=== PATIENT | male | born 1980 | race Caucasian/White ===

== ENCOUNTER 2019-07-23 12:26 | Emergency (ER) | payer OTHER ==
[~2019-07-23] VITALS: Ht 180.3 cm; Wt 98.9 kg
--- NOTE | 2019-07-23 13:00 | NUR ---
Patient discharged to home in stable condition with brisk steady gait. Written and verbal after care instructions given to patient. Patient verbalized understanding & compliance of instructions. Emphasis and stressed follow up with his primary doctor or return to ER for worsening s/s.
== END 2019-07-23 13:02 | disposition home or self-care (01) ==
LOC: ER 12:26
DX: K21.9 Gastro-esophageal reflux disease without esophagitis (principal); M54.5 Low back pain
CPT/HCPCS: A4663

== ENCOUNTER 2019-08-25 14:55 | Emergency (ER) | payer OTHER ==
[~2019-08-25] VITALS: Ht 180.3 cm; Wt 97.1 kg
--- NOTE | 2019-08-25 15:14 | NUR ---
Patient discharged to home in stable condition. Written and verbal after care instructions given. Patient verbalizes understanding of instructions. pt walks in steady gait. Stressed follow up or return to ER for worsening s/s.
== END 2019-08-25 15:16 | disposition home or self-care (01) ==
LOC: ER 15:02
DX: M54.5 Low back pain (principal)
CPT/HCPCS: A4663

== ENCOUNTER 2019-09-20 18:34 | Emergency (ER) | payer OTHER ==
[~2019-09-20] VITALS: Ht 180.3 cm; Wt 95.3 kg
--- NOTE | 2019-09-20 18:41 | NUR ---
DR CHACON AT BEDSIDE FOR EVAL.
[2019-09-20] MEDS ORDERED: KETOROLAC TROMETHAMINE 30 MG INJ ONE (18:54)
[2019-09-20] MEDS ORDERED: DIAZEPAM 5 MG TABLET ONE (18:54)
[2019-09-20] MEDS ORDERED: HYDROCODONE/APAP 5-325MG TABLET ONE (18:54)
--- NOTE | 2019-09-20 18:57 | NUR ---
HAND OFF REPORT GIVEN TO DANA ARGUELLO. XRAY IN PROCESS...
[2019-09-20] MEDS ORDERED: HYDROCODONE/APAP 5-325MG TABLET PO ONE (19:00)
[2019-09-20] MEDS ORDERED: KETOROLAC TROMETHAMINE 30 MG INJ IM ONE (19:00)
[2019-09-20] MEDS ORDERED: DIAZEPAM 2 MG TABLET PO ONE (19:00)
--- NOTE | 2019-09-20 19:31 | NUR ---
Patient discharged to home in stable condition. Written and verbal after care instructions given. Patient verbalizes understanding of instructions. Stressed follow up or return to ER for worsening s/s. Patient was able to ambulate with stable gait. Patient instructed that he may drive, states that he will get picked up.
[2019-09-20 19:32] VITALS: BP 138/89
== END 2019-09-20 19:33 | disposition home or self-care (01) ==
LOC: ER 18:34
DX: S39.012A Strain of muscle, fascia and tendon of lower back, initial encounter (principal); W01.0XXA Fall on same level from slipping, tripping and stumbling without subsequent striking against object, initial encounter; Y93.83 Activity, rough housing and horseplay; Y92.34 Swimming pool (public) as the place of occurrence of the external cause; Y99.8 Other external cause status
CPT/HCPCS: 72110; 96372; 99283; J1885; A4663

== ENCOUNTER 2019-09-28 09:59 | Emergency (ER) | payer OTHER ==
[~2019-09-28] VITALS: Ht 180.3 cm; Wt 98.0 kg
--- NOTE | 2019-09-28 10:00 | NUR ---
Patient is seen walking to room 2 from ER waiting room with brisk steady gait, c/o chronic back pains, NAD, pending MD evaluation
--- NOTE | 2019-09-28 10:32 | NUR ---
Patient discharged to home in stable condition & brisk steady gait. Written and verbal after care instructions given to patient. Patient verbalized understanding & compliance of instructions. Stressed follow up with pain doctor for his chronic pains or return to ER for worsening s/s.
== END 2019-09-28 10:34 | disposition home or self-care (01) ==
LOC: ER 09:59
DX: G89.29 Other chronic pain (principal); M54.5 Low back pain
CPT/HCPCS: A4663

== ENCOUNTER 2019-11-01 21:30 | Emergency (ER) | payer OTHER ==
[~2019-11-01] VITALS: Ht 180.3 cm; Wt 98.0 kg
[2019-11-01] MEDS ORDERED: IBUP-1958 PO (21:45)
[2019-11-01] MEDS ORDERED: CYCLOBENZAPRINE 10 MG (21:45)
[2019-11-01] MEDS ORDERED: PRED20TA PO (21:45)
--- NOTE | 2019-11-01 21:48 | NUR ---
pt presented to er ambulatory for c/o lower back pain since this AM. pain 8-12/05. aa/0x4. able to speak in complete sentences respirations even and unlabored denies changes in GI/ safety precautions in place. bed locked, lowest position. instructed pt to call nurse for assistance will continue to monitor
--- NOTE | 2019-11-01 22:01 | NUR ---
Dr. Savage at bedside for MSE
[2019-11-01] MEDS ORDERED: MORPHINE SULFATE 4 MG/1 ML DISP.SYRIN IM ONE (23:30)
[2019-11-01] MEDS ORDERED: MORPHINE SULFATE 4 MG/1 ML DISP.SYRIN ONE (23:30)
--- NOTE | 2019-11-01 23:59 | NUR ---
BACK PAIN 06/04. PT D/C'D HOME, ACI/RX X1 GIVEN. PT AMBULATED W/O DIFF/TOOK ALL BELONGINGS.
[2019-11-02] VITALS: BP 139/98
== END 2019-11-01 23:58 | disposition home or self-care (01) ==
LOC: ER 21:31
DX: M54.5 Low back pain (principal); G89.29 Other chronic pain; R03.0 Elevated blood-pressure reading, without diagnosis of hypertension
CPT/HCPCS: 96372; 99283; J2270; A4663

== ENCOUNTER 2019-12-16 10:28 | Emergency (ER) | payer OTHER ==
[~2019-12-16] VITALS: Ht 180.3 cm; Wt 98.0 kg
[~2019-12-16 10:28] MED LIST: CYCLOBENZAPRINE 10 MG; IBUP-1958 PO; PRED20TA PO
[2019-12-16] MEDS ORDERED: HYDROMORPHONE 2 MG/1 ML DISP.SYRIN ONE (10:41)
[2019-12-16] MEDS ORDERED: ONDANSETRON 4 MG/2 ML VIAL ONE (10:41)
--- NOTE | 2019-12-16 10:43 | NUR ---
Patient discharged to home in stable condition. Written and verbal after care instructions given. Patient verbalizes understanding of instructions. Stressed follow up or return to ER for worsening s/s.
[2019-12-16] MEDS ORDERED: ONDANSETRON 4 MG/2 ML VIAL IM ONE (10:45)
[2019-12-16] MEDS ORDERED: HYDROMORPHONE 1 MG/1 ML DISP.SYRIN IM ONE (10:45)
== END 2019-12-16 10:47 | disposition home or self-care (01) ==
LOC: ER 10:28
DX: M54.42 Lumbago with sciatica, left side (principal); Z88.2 Allergy status to sulfonamides
CPT/HCPCS: 96372; 99283; J1170; J2405; A4663

== ENCOUNTER 2020-01-04 12:26 | Emergency (ER) | payer OTHER ==
[~2020-01-04] VITALS: Ht 177.8 cm; Wt 97.5 kg
--- NOTE | 2020-01-04 12:38 | NUR ---
MD@bedside, medical screening exam in progress
[2020-01-04] MEDS ORDERED: HYDROCODONE/APAP 5-325MG TABLET PO ONE (12:45)
[2020-01-04] MEDS ORDERED: DEXAMETHASONE SOD PHOSPHATE 4 MG INJ IM ONE (12:45)
[2020-01-04] MEDS ORDERED: IBUPROFEN 800 MG TABLET PO ONE (12:45)
[2020-01-04] MEDS ORDERED: IBUPROFEN 800 MG TABLET ONE (12:55)
[2020-01-04] MEDS ORDERED: HYDROCODONE/APAP 5-325MG TABLET ONE (12:55)
[2020-01-04] MEDS ORDERED: DEXAMETHASONE SOD PHOSPHATE 10 MG INJ ONE (12:56)
--- NOTE | 2020-01-04 13:01 | NUR ---
Patient discharged to home in stable condition & brisk steady gait. Written and verbal after care instructions given to patient. Patient verbalized understanding and compliance of instructions. Patient said that his is driving his care. Stressed follow up with his primary doctor and/or his pain specialist. Patient was also told to return to ER for worsening signs and symptoms. Addendum: 01/04/20 at 1309 by KATHLEEN ...his is driving his car.
== END 2020-01-04 13:09 | disposition home or self-care (01) ==
LOC: ER 12:26
DX: G89.29 Other chronic pain (principal); M54.5 Low back pain; F11.20 Opioid dependence, uncomplicated
CPT/HCPCS: 96372; 99283; J1100; A4663

== ENCOUNTER 2020-01-13 09:44 | Emergency (ER) | payer OTHER ==
[~2020-01-13] VITALS: Ht 177.8 cm; Wt 97.5 kg
--- NOTE | 2020-01-13 09:45 | NUR ---
Dr. Shaa at bedside for MSE
[2020-01-13] MEDS ORDERED: KETOROLAC TROMETHAMINE 60 MG INJ IM ONE ×2 (10:00→10:03)
--- NOTE | 2020-01-13 10:03 | NUR ---
Patient discharged to home in stable condition. Written and verbal after care instructions given. Patient verbalizes understanding of instructions. Stressed follow up or return to ER for worsening s/s. Patient ambulated with steady gait. NAD noted
[2020-01-13 10:06] VITALS: BP 163/84
== END 2020-01-13 10:03 | disposition home or self-care (01) ==
LOC: ER 09:44
DX: G89.29 Other chronic pain (principal); M51.17 Intervertebral disc disorders with radiculopathy, lumbosacral region
CPT/HCPCS: 96372; 99283; J1885; A4663

== ENCOUNTER 2020-03-11 12:27 | Emergency (ER) | payer OTHER ==
[~2020-03-11] VITALS: Ht 177.8 cm; Wt 97.5 kg
--- NOTE | 2020-03-11 13:18 | NUR ---
PATIENT WAS SEEN BY . DC, RX AND FOLLOW UP INSTRUCTIONS GIVEN AND EXPLAINED TO PATIENT WHO STATES HE UNDERSTANDS ALL INSTRUCTIONS
== END 2020-03-11 13:34 | disposition home or self-care (01) ==
LOC: ER 12:27
DX: B02.9 Zoster without complications (principal); R03.0 Elevated blood-pressure reading, without diagnosis of hypertension; Z88.2 Allergy status to sulfonamides; G89.29 Other chronic pain; M54.9 Dorsalgia, unspecified
CPT/HCPCS: A4663

== ENCOUNTER 2020-04-17 12:19 | Emergency (ER) | payer OTHER ==
[~2020-04-17] VITALS: Ht 177.8 cm; Wt 95.3 kg
--- NOTE | 2020-04-17 12:32 | NUR ---
Dr Adhikari at the bedside for medical screening.
[2020-04-17] MEDS ORDERED: KETOROLAC TROMETHAMINE 30 MG INJ ONE (12:42)
--- NOTE | 2020-04-17 12:43 | NUR ---
Patient discharged to home in stable condition. Written and verbal after care instructions given. Patient verbalizes understanding of instructions. Stressed follow up or return to ER for worsening s/s. Pt walked out of ER w/ steady gait.
[2020-04-17 12:44] VITALS: BP 136/77
[2020-04-17] MEDS ORDERED: KETOROLAC TROMETHAMINE 30 MG INJ IM ONE (12:45)
== END 2020-04-17 12:44 | disposition home or self-care (01) ==
LOC: ER 12:19
DX: G89.29 Other chronic pain (principal); M54.42 Lumbago with sciatica, left side; Z76.0 Encounter for issue of repeat prescription
CPT/HCPCS: 96372; 99283; J1885; A4663

== ENCOUNTER 2020-05-19 16:12 | Emergency (ER) | payer OTHER ==
[~2020-05-19] VITALS: Ht 177.8 cm; Wt 95.3 kg
[2020-05-19] MEDS ORDERED: HYDROMORPHONE 1 MG/1 ML DISP.SYRIN IM ONE (16:30)
[2020-05-19] MEDS ORDERED: ONDANSETRON 4 MG/2 ML VIAL IM ONE (16:30)
[2020-05-19] MEDS ORDERED: ONDANSETRON 4 MG/2 ML VIAL ONE (16:35)
[2020-05-19] MEDS ORDERED: HYDROMORPHONE 2 MG/1 ML DISP.SYRIN ONE (16:35)
--- NOTE | 2020-05-19 16:35 | NUR ---
Patient discharged to home in stable condition. Written and verbal after care instructions given. Patient verbalizes understanding of instructions. Stressed follow up or return to ER for worsening s/s.pt walks in steady gait. pt not driving
== END 2020-05-19 16:36 | disposition home or self-care (01) ==
LOC: ER 16:14
DX: G89.29 Other chronic pain (principal); M54.42 Lumbago with sciatica, left side; Z88.2 Allergy status to sulfonamides
CPT/HCPCS: 96372; 99283; J1170; J2405; A4663

== ENCOUNTER 2020-05-30 14:00 | Emergency (ER) | payer OTHER ==
[~2020-05-30] VITALS: Ht 180.3 cm; Wt 100.7 kg
[2020-05-30] MEDS ORDERED: MORPHINE SULFATE 4 MG/1 ML DISP.SYRIN IM ONE (14:15)
[2020-05-30] MEDS ORDERED: MORPHINE SULFATE 2 MG/1 ML DISP.SYRIN ONE (14:22)
[2020-05-30] MEDS ORDERED: MORPHINE SULFATE 4 MG/1 ML DISP.SYRIN ONE (14:22)
[2020-05-30] MEDS ORDERED: NAPR-1164 PO (15:00)
[2020-05-30] MEDS ORDERED: HYDR-3972 PO (15:15)
--- NOTE | 2020-05-30 15:24 | NUR ---
Patient discharged to home in stable condition. Written and verbal after care instructions given. Patient verbalizes understanding of instructions. Stressed follow up or return to ER for worsening s/s.pt was prescribed with naprosyn, but pt said cannot tolerate it and requested norco. er md changed the px to anexsesia
== END 2020-05-30 15:29 | disposition home or self-care (01) ==
LOC: ER 14:00
DX: M25.562 Pain in left knee (principal); M25.462 Effusion, left knee; G89.29 Other chronic pain; M54.5 Low back pain
CPT/HCPCS: 29505; 73564; 96372; 99283; J2270 ×2; A4663

== ENCOUNTER 2020-06-05 14:35 | Emergency (ER) | payer OTHER ==
[~2020-06-05] VITALS: Ht 180.3 cm; Wt 99.8 kg
[~2020-06-05 14:35] MED LIST changes: +HYDR-3972 PO; +NAPR-1164 PO
--- NOTE | 2020-06-05 15:01 | NUR ---
Dr Candelario at the bedside for MSE.
[2020-06-05] MEDS ORDERED: HYDROCODONE/APAP 5-325MG TABLET PO ONE (15:15)
[2020-06-05] MEDS ORDERED: HYDROCODONE/APAP 5-325MG TABLET ONE (15:18)
[2020-06-05 15:19] VITALS: BP 151/74
== END 2020-06-05 15:20 | disposition home or self-care (01) ==
LOC: ER 14:35
DX: M25.562 Pain in left knee (principal); Z76.5 Malingerer [conscious simulation]; G89.29 Other chronic pain; M54.5 Low back pain
CPT/HCPCS: A4663

== ENCOUNTER 2020-07-08 13:30 | Emergency (ER) | payer OTHER ==
[~2020-07-08] VITALS: Ht 180.3 cm; Wt 101.6 kg
[2020-07-08] MEDS ORDERED: OXYC-133 PO (13:42)
[2020-07-08] MEDS ORDERED: ONDANSETRON 4 MG/2 ML VIAL IM ONE (13:45)
[2020-07-08] MEDS ORDERED: HYDROMORPHONE 1 MG/1 ML DISP.SYRIN IM ONE (13:45)
[2020-07-08] MEDS ORDERED: OXYC-121 PO (13:45)
--- NOTE | 2020-07-08 13:48 | NUR ---
Patient was seen by . Meds given as ordered
[2020-07-08] MEDS ORDERED: HYDROMORPHONE 2 MG/1 ML DISP.SYRIN ONE (13:50)
[2020-07-08] MEDS ORDERED: ONDANSETRON 4 MG/2 ML VIAL ONE (13:51)
== END 2020-07-08 13:49 | disposition home or self-care (01) ==
LOC: ER 13:30
DX: M54.42 Lumbago with sciatica, left side (principal); Z88.2 Allergy status to sulfonamides
CPT/HCPCS: 96372 ×2; 99284; J1170; J2405; A4663

== ENCOUNTER 2020-07-15 14:08 | Emergency (ER) | payer OTHER ==
[~2020-07-15] VITALS: Ht 180.3 cm; Wt 101.6 kg
--- NOTE | 2020-07-15 14:50 | NUR ---
at bedside to assess pt.
[2020-07-15] MEDS ORDERED: OXYC-121 PO ×2 (14:54→14:58)
[2020-07-15] MEDS ORDERED: OXYCODONE/APAP 5-325 MG TABLET PO ONE (15:00)
--- NOTE | 2020-07-15 15:05 | NUR ---
pt given pain medication as ordered.
--- NOTE | 2020-07-15 15:09 | NUR ---
Patient discharged to home in stable condition. Written and verbal after care instructions given. Patient verbalizes understanding of instructions. Stressed follow up or return to ER for worsening s/s. copy of prescription given. educated not to drive after taking narcotics. verbalized understanding
[2020-07-15] MEDS ORDERED: OXYCODONE/APAP 5-325 MG TABLET ONE (15:10)
[2020-07-15 15:14] VITALS: BP 112/66
== END 2020-07-15 15:14 | disposition home or self-care (01) ==
LOC: ER 14:08
DX: M54.42 Lumbago with sciatica, left side (principal); G89.29 Other chronic pain; Z88.2 Allergy status to sulfonamides
CPT/HCPCS: A4663

== ENCOUNTER 2020-07-25 13:00 | Emergency (ER) | payer OTHER ==
[~2020-07-25] VITALS: Ht 180.3 cm; Wt 99.8 kg
[~2020-07-25 13:00] MED LIST changes: +OXYC-121 PO
--- NOTE | 2020-07-25 13:12 | NUR ---
at bedside for assessment
[2020-07-25] MEDS ORDERED: HYDROMORPHONE 1 MG/1 ML DISP.SYRIN IM ONE (14:00)
[2020-07-25] MEDS ORDERED: HYDROMORPHONE 1 MG/1 ML DISP.SYRIN ONE (14:12)
--- NOTE | 2020-07-25 14:20 | NUR ---
Pt stated he will call and [employer] for a ride home.
== END 2020-07-25 14:21 | disposition home or self-care (01) ==
LOC: ER 13:00
DX: G89.29 Other chronic pain (principal); M54.5 Low back pain; R03.0 Elevated blood-pressure reading, without diagnosis of hypertension; Z88.2 Allergy status to sulfonamides
CPT/HCPCS: 96372; 99283; J1170; A4663

== ENCOUNTER 2020-08-01 13:47 | Emergency (ER) | payer OTHER ==
[~2020-08-01] VITALS: Ht 180.3 cm; Wt 93.4 kg
--- NOTE | 2020-08-01 14:21 | NUR ---
at bedside for assessment
[2020-08-01] MEDS ORDERED: HYDROMORPHONE 1 MG/1 ML DISP.SYRIN IM ONE ×2 (14:30→15:45)
[2020-08-01] MEDS ORDERED: diphenhydrAMINE 50 MG/1 ML VIAL IM ONE ×2 (14:30→15:45)
[2020-08-01] MEDS ORDERED: diphenhydrAMINE 50 MG/1 ML VIAL ONE ×2 (14:42→15:45)
[2020-08-01] MEDS ORDERED: HYDROMORPHONE 2 MG/1 ML DISP.SYRIN ONE ×2 (14:42→15:45)
[2020-08-01] MEDS ORDERED: IBUP800T54 PO (15:14)
[2020-08-01] MEDS ORDERED: OXYC-133 PO (15:14)
[2020-08-01] MEDS ORDERED: CYCL10TA9 PO (15:14)
[2020-08-01] MEDS ORDERED: NALO4SPR NS (15:14)
[2020-08-01 15:54] VITALS: BP 127/95
--- NOTE | 2020-08-01 15:54 | NUR ---
Patient discharged to home in stable condition. Written and verbal after care instructions given. Patient verbalizes understanding of instructions. Stressed follow up or return to ER for worsening s/s. Pt left ER w/ steady gait.
== END 2020-08-01 15:54 | disposition home or self-care (01) ==
LOC: ER 13:47
DX: G89.29 Other chronic pain (principal); M54.5 Low back pain; Z88.2 Allergy status to sulfonamides
CPT/HCPCS: 96372 ×2; 99284; J1170 ×2; J1200 ×2; A4663

== ENCOUNTER 2020-08-12 15:38 | Emergency (ER) | payer OTHER ==
[~2020-08-12] VITALS: Ht 180.3 cm; Wt 93.4 kg
[~2020-08-12 15:38] MED LIST changes: +CYCL10TA9 PO; +IBUP800T54 PO; +NALO4SPR NS; +OXYC-133 PO
[2020-08-12] MEDS ORDERED: ONDANSETRON 4 MG/2 ML VIAL IM ONE (16:00)
[2020-08-12] MEDS ORDERED: HYDROMORPHONE 1 MG/1 ML DISP.SYRIN IM ONE (16:00)
--- NOTE | 2020-08-12 16:08 | NUR ---
Patient discharged to home in stable condition. Written and verbal after care instructions given. Patient verbalizes understanding of instructions. Stressed follow up or return to ER for worsening s/s. pt not driving.
[2020-08-12] MEDS ORDERED: ONDANSETRON 4 MG/2 ML VIAL ONE (16:09)
[2020-08-12] MEDS ORDERED: HYDROMORPHONE 2 MG/1 ML DISP.SYRIN ONE (16:09)
== END 2020-08-12 16:09 | disposition home or self-care (01) ==
LOC: ER 15:38
DX: G89.29 Other chronic pain (principal); M54.5 Low back pain; Z88.2 Allergy status to sulfonamides
CPT/HCPCS: 96372; 99283; J1170; A4663; J2405

== ENCOUNTER 2020-08-21 11:38 | Emergency (ER) | payer OTHER ==
[~2020-08-21] VITALS: Ht 180.3 cm; Wt 77.1 kg
[2020-08-21] MEDS: HYDROMORPHONE 1 MG/1 ML DISP.SYRIN IM ONE (11:56)
[2020-08-21] MEDS: ONDANSETRON 4 MG/2 ML VIAL IM ONE (11:56)
[2020-08-21] MEDS ORDERED: HYDROMORPHONE 2 MG/1 ML DISP.SYRIN ONE (11:59)
[2020-08-21] MEDS ORDERED: ONDANSETRON 4 MG/2 ML VIAL ONE (11:59)
== END 2020-08-21 11:57 | disposition home or self-care (01) ==
LOC: ER 11:38
DX: G89.29 Other chronic pain (principal); M54.5 Low back pain
CPT/HCPCS: 96372; 99283; J1170; J2405; A4663

== ENCOUNTER 2020-08-25 07:45 | Emergency (ER) | payer OTHER ==
[~2020-08-25] VITALS: Ht 180.3 cm; Wt 77.1 kg
[2020-08-25] MEDS ORDERED: PRED50TA PO (08:05)
[2020-08-25] MEDS ORDERED: LIDO30AD10 TD (08:05)
[2020-08-25] MEDS ORDERED: GABA600T12 PO (08:05)
[2020-08-25] MEDS: LIDOCAINE 5% PATCH TD ONE (08:19)
[2020-08-25] MEDS: KETOROLAC TROMETHAMINE 30 MG INJ IM ONE (08:19)
[2020-08-25 08:27] VITALS: BP 144/82
== END 2020-08-25 08:28 | disposition home or self-care (01) ==
LOC: ER 07:45
DX: G89.29 Other chronic pain (principal); M54.42 Lumbago with sciatica, left side
CPT/HCPCS: A4663

== ENCOUNTER 2020-08-30 21:26 | Emergency (ER) | payer OTHER ==
[~2020-08-30] VITALS: Ht 180.3 cm; Wt 101.2 kg
[~2020-08-30 21:26] MED LIST changes: +GABA600T12 PO; +LIDO30AD10 TD; +PRED50TA PO
--- NOTE | 2020-08-30 21:35 | NUR ---
Pt ambulated to ER with c/o low back pain x 2 days, patient has hx of sciatica. A/O x4. PL:01/04. No SOB or labored breathing. No c/o chest pain/pressure. No edema on extremities. No GI/ distress Bed in lowest position, educated about safety precautions, verbalized understanding.
--- NOTE | 2020-08-30 21:41 | NUR ---
Dr. Barnhart at bedside, MSE in progress in room 5A.
[2020-08-30] MEDS ORDERED: HYDROMORPHONE 1 MG/1 ML DISP.SYRIN IM ONE (22:00)
[2020-08-30] MEDS ORDERED: ONDANSETRON HCL 4 MG TABLET PO ONE (22:00)
[2020-08-30] MEDS ORDERED: KETOROLAC TROMETHAMINE 60 MG INJ IM ONE ×2 (22:00→22:07)
[2020-08-30] MEDS ORDERED: HYDROMORPHONE 2 MG/1 ML DISP.SYRIN ONE (22:07)
[2020-08-30] MEDS ORDERED: ONDANSETRON HCL 4 MG TABLET ONE (22:07)
[2020-08-30 22:10] LABS: BASOPHILS # (AUTO) 0.1 K/uL (0.0-8.0); BASOPHILS % (AUTO) 0.6 % (0.0-2.0); EOSINOPHILS # (AUTO) 0.4 K/uL (0.0-0.7); EOSINOPHILS % (AUTO) 3.8 % (0.0-7.0); HEMATOCRIT 47.7 % (36.7-47.1); HEMOGLOBIN 16.4 g/dL (12.5-16.3); LYMPHOCYTES # (AUTO) 1.8 K/uL (20.0-40.0); LYMPHOCYTES % (AUTO) 17.9 % (20.5-51.5); MEAN CORPUSCULAR HEMOGLOBIN 33.1 uug (23.8-33.4); MEAN CORPUSCULAR HGB CONC 34 g/dL (32.5-36.3); MEAN CORPUSCULAR VOLUME 96.2 fL (73.0-96.2); MONOCYTES # (AUTO) 0.7 K/uL (2.0-10.0); MONOCYTES % (AUTO) 7.3 % (0.0-11.0); NEUTROPHILS # (AUTO) 7.1 K/uL (1.8-8.9); NEUTROPHILS % (AUTO) 70.4 % (38.5-71.5); PLATELET COUNT (AUTO) 341 K/uL (152-348); RED BLOOD CELL COUNT(AUTO) 4.96 MIL/uL (4.06-5.63); WHITE BLOOD COUNT (AUTO) 10.1 K/uL (3.6-10.2)
[2020-08-30 22:18] LABS: CREATININE 1.3 mg/dL (0.6-1.3); POTASSIUM 4.5 mmol/L (3.5-5.1)
[2020-08-30] MEDS ORDERED: HYDR4TAB4 PO (23:43)
[2020-08-30] MEDS ORDERED: toradol PO (23:43)
--- NOTE | 2020-08-30 23:51 | NUR ---
Patient discharged to home in stable condition. A/O x4, no SOB or labored breathing, afebrile. Steady gait. Medications for low back pain noted to be effective. Written and verbal after care instructions given, instructed pt not to drive. Patient verbalizes understanding of instructions. Stressed follow up or return to ER for worsening s/s. Steady gait.
[2020-08-30 23:53] VITALS: BP 158/94
== END 2020-08-30 23:54 | disposition home or self-care (01) ==
LOC: ER 21:29
DX: M54.42 Lumbago with sciatica, left side (principal); E66.9 Obesity, unspecified; Z68.31 Body mass index [BMI] 31.0-31.9, adult; Z88.2 Allergy status to sulfonamides; R03.0 Elevated blood-pressure reading, without diagnosis of hypertension
CPT/HCPCS: 36415; 80048; 85025; 96372 ×2; 99284; J1170; J1885; A4663; Q0162

== ENCOUNTER 2020-09-10 17:43 | Emergency (ER) | payer OTHER ==
[~2020-09-10] VITALS: Ht 180.3 cm; Wt 101.2 kg
[~2020-09-10 17:43] MED LIST changes: +HYDR4TAB4 PO; +toradol PO
[2020-09-10] MEDS ORDERED: KETOROLAC TROMETHAMINE 30 MG INJ IM ONE (18:00)
[2020-09-10] MEDS ORDERED: CYCLOBENZAPRINE HCL 10 MG TABLET PO ONE (18:00)
[2020-09-10] MEDS ORDERED: HYDROMORPHONE 1 MG/1 ML DISP.SYRIN IM ONE (18:00)
[2020-09-10] MEDS ORDERED: NAPR-1164 PO (18:06)
[2020-09-10] MEDS ORDERED: CYCL5TAB PO (18:06)
[2020-09-10] MEDS ORDERED: OXYC-128 PO (18:06)
[2020-09-10] MEDS ORDERED: HYDROMORPHONE 1 MG/1 ML DISP.SYRIN ONE (18:09)
[2020-09-10] MEDS ORDERED: CYCLOBENZAPRINE HCL 10 MG TABLET ONE (18:10)
[2020-09-10] MEDS ORDERED: KETOROLAC TROMETHAMINE 30 MG INJ ONE (18:10)
--- NOTE | 2020-09-10 18:26 | NUR ---
PATIENT WAS SEEN BY DR ROSA. MEDICATIONS GIVEN ORDERED. PATIENT STATES HE IS NOT DRIVING AND STATES HE IS AWARE OF ALL NARCOTIC PRECAUTIONS
--- NOTE | 2020-09-10 18:27 | NUR ---
DC, RX AND FOLLOW INSTRUCTIONS GIVEN AND EXPLAINED TO PATIENT WHO STATES HE UNDERSTANDS ALL INSTRUCTIONS
== END 2020-09-10 18:30 | disposition home or self-care (01) ==
LOC: ER 17:44
DX: M54.42 Lumbago with sciatica, left side (principal); G89.29 Other chronic pain; Z88.2 Allergy status to sulfonamides
CPT/HCPCS: 96372 ×2; 99284; J1170; J1885; A4663

== ENCOUNTER 2020-09-15 16:15 | Emergency (ER) | payer OTHER ==
[~2020-09-15] VITALS: Ht 180.3 cm; Wt 101.2 kg
[~2020-09-15 16:15] MED LIST changes: +CYCL5TAB PO; +OXYC-128 PO
[2020-09-15] MEDS ORDERED: HYDROMORPHONE 1 MG/1 ML DISP.SYRIN IM ONE (17:00)
[2020-09-15] MEDS ORDERED: ONDANSETRON 4 MG/2 ML VIAL IM ONE (17:00)
[2020-09-15] MEDS ORDERED: HYDROMORPHONE 2 MG/1 ML DISP.SYRIN ONE (17:10)
[2020-09-15] MEDS ORDERED: ONDANSETRON 4 MG/2 ML VIAL ONE (17:10)
== END 2020-09-15 17:08 | disposition home or self-care (01) ==
LOC: ER 16:18
DX: M54.42 Lumbago with sciatica, left side (principal); G89.29 Other chronic pain
CPT/HCPCS: 96372 ×2; 99284; J1170; J2405; A4663

== ENCOUNTER 2020-09-23 18:36 | Emergency (ER) | payer OTHER ==
[~2020-09-23] VITALS: Ht 170.2 cm; Wt 101.2 kg
--- NOTE | 2020-09-23 19:08 | NUR ---
MD at bedside to evaluate pt.
--- NOTE | 2020-09-23 19:15 | NUR ---
Pt cc low back pain 12/05. Pt has hx sciatica, visited ER 4x this month, also visited last month and month before last regarding this issue. Pt denies any exacerbating injury or activity. Vss. Pt currently resting in bed. Will continue to monitor.
[2020-09-23] MEDS ORDERED: ACETAMINOPHEN 325 MG TABLET PO ONE ×2 (20:00)
[2020-09-23] MEDS ORDERED: KETOROLAC TROMETHAMINE 15 MG INJ IM ONE (20:00)
[2020-09-23] MEDS ORDERED: KETOROLAC TROMETHAMINE 15 MG INJ ONE (20:06)
[2020-09-23] MEDS ORDERED: ACETAMINOPHEN ES 500 MG TABLET ONE (20:09)
--- NOTE | 2020-09-23 20:33 | NUR ---
Patient discharged to home in stable condition. Written and verbal after care instructions given. Patient verbalizes understanding of instructions. Stressed follow up or return to ER for worsening s/s. Pt walks with steady gait and took all belongings with him.
[2020-09-23 20:34] VITALS: BP 139/87
== END 2020-09-23 20:34 | disposition home or self-care (01) ==
LOC: ER 18:36
DX: G89.29 Other chronic pain (principal); M54.40 Lumbago with sciatica, unspecified side; Z88.2 Allergy status to sulfonamides
CPT/HCPCS: 96372; 99283; J1885; A4663; A9150

== ENCOUNTER 2020-09-28 22:19 | Emergency (ER) | payer OTHER ==
[~2020-09-28] VITALS: Ht 175.3 cm; Wt 101.2 kg
--- NOTE | 2020-09-28 22:27 | NUR ---
Dr. Savage at bedside for MSE.
--- NOTE | 2020-09-28 22:30 | NUR ---
Patient eloped from facility. ER physician notified.
== END 2020-09-28 22:33 | disposition left against medical advice (07) ==
LOC: ER 22:20
DX: G89.29 Other chronic pain (principal); M54.40 Lumbago with sciatica, unspecified side
CPT/HCPCS: A4663

== ENCOUNTER 2020-10-06 18:30 | Emergency (ER) | payer OTHER ==
--- NOTE | 2020-10-06 18:39 | NUR ---
PT LEFT BEFORE BEING TRIAGED. HE ASKED ABOUT WHICH DOCTOR IS IN CHARGE NOW, AND DECIDED TO GO SOMEPLACE ELSE, WHERE THE WAIT IS SHORTER.
== END 2020-10-06 18:59 | disposition left against medical advice (07) ==
LOC: ER 18:32
DX: Z53.21 Procedure and treatment not carried out due to patient leaving prior to being seen by health care provider (principal)

== ENCOUNTER 2020-10-07 14:49 | Emergency (ER) | payer OTHER ==
[~2020-10-07] VITALS: Ht 172.7 cm; Wt 101.2 kg
[2020-10-07] MEDS ORDERED: HYDROMORPHONE 1 MG/1 ML DISP.SYRIN IM ONE (15:30)
[2020-10-07] MEDS ORDERED: HYDROMORPHONE 2 MG/1 ML DISP.SYRIN ONE (15:34)
--- NOTE | 2020-10-07 15:36 | NUR ---
PT WAS EVALUATED BY DR REED. PT WAS D/C'd TO HOME. D/C INSTRUCTIONS GIVEN TO THE PT BY DR REED.
[2020-10-07 15:37] VITALS: BP 136/87
== END 2020-10-07 15:38 | disposition home or self-care (01) ==
LOC: ER 14:49
DX: G89.29 Other chronic pain (principal); M54.42 Lumbago with sciatica, left side
CPT/HCPCS: 96372; 99283; J1170; A4663

== ENCOUNTER 2020-10-18 17:18 | Emergency (ER) | payer OTHER ==
[~2020-10-18] VITALS: Ht 180.3 cm; Wt 103.4 kg
[2020-10-18] MEDS ORDERED: LISI20TA30 PO (18:21)
[2020-10-18] MEDS ORDERED: OMEP40CA21 PO (18:21)
[2020-10-18] MEDS ORDERED: PROP80CA51 PO (18:21)
[2020-10-18] MEDS ORDERED: KETOROLAC TROMETHAMINE 30 MG INJ IM ONE (18:30)
[2020-10-18] MEDS ORDERED: DEXAMETHASONE SOD PHOSPHATE 4 MG INJ IM ONE (18:30)
[2020-10-18] MEDS ORDERED: NAPR-1164 PO (18:33)
--- NOTE | 2020-10-18 18:50 | NUR ---
At 1850, Decadron 10 mg was given by me in left deltoid IM. In a separate injection at 1849, Toradol 30 mg was given by me in the pt's Right deltoid IM.
[2020-10-18] MEDS ORDERED: KETOROLAC TROMETHAMINE 30 MG INJ ONE (19:03)
[2020-10-18] MEDS ORDERED: DEXAMETHASONE SOD PHOSPHATE 10 MG INJ ONE (19:04)
--- NOTE | 2020-10-18 19:10 | NUR ---
Patient discharged to home in stable condition. Written and verbal after care instructions given. Patient verbalizes understanding of instructions. Stressed follow up or return to ER for worsening s/s. Pt walks with steady gait. All belongings taken w/ pt. No signs of distress, vss.
[2020-10-18 19:11] VITALS: BP 139/81
== END 2020-10-18 19:05 | disposition home or self-care (01) ==
LOC: ER 17:18
DX: G89.29 Other chronic pain (principal); M54.5 Low back pain; Z88.2 Allergy status to sulfonamides
CPT/HCPCS: 96372 ×2; 99284; J1100; J1885; A4663

== ENCOUNTER 2020-10-21 09:11 | Emergency (ER) | payer OTHER ==
[~2020-10-21] VITALS: Ht 180.3 cm; Wt 103.4 kg
[~2020-10-21 09:11] MED LIST changes: +LISI20TA30 PO; +OMEP40CA21 PO; +PROP80CA51 PO
--- NOTE | 2020-10-21 09:32 | NUR ---
at bedside for assessment
--- NOTE | 2020-10-21 09:41 | NUR ---
Resources for [place] [facility], [facility] and [facility] for rehabilitation given to patient at this time
--- NOTE | 2020-10-21 09:54 | NUR ---
Patient discharged to home in stable condition. No signs of acute distress noted. Written and verbal after care instructions given. Patient verbalizes understanding of instructions. Stressed follow up or return to ER for worsening s/s.
[2020-10-21 09:55] VITALS: BP 125/72
== END 2020-10-21 09:50 | disposition home or self-care (01) ==
LOC: ER 09:11
DX: G89.29 Other chronic pain (principal); M54.5 Low back pain; Z88.2 Allergy status to sulfonamides
CPT/HCPCS: A4663

== ENCOUNTER 2020-10-31 22:24 | Emergency (ER) | payer OTHER ==
[~2020-10-31] VITALS: Ht 180.3 cm; Wt 101.2 kg
--- NOTE | 2020-10-31 23:15 | NUR ---
Dr. Barnhart at bedside for MSE
[2020-10-31] MEDS ORDERED: OXYC-128 PO (23:24)
[2020-10-31] MEDS ORDERED: KETOROLAC TROMETHAMINE 60 MG INJ IM ONE ×2 (23:30→23:44)
[2020-10-31] MEDS ORDERED: OXYCODONE/APAP 5-325 MG TABLET PO ONE (23:30)
[2020-10-31] MEDS ORDERED: OXYCODONE/APAP 5-325 MG TABLET ONE (23:44)
--- NOTE | 2020-11-01 00:02 | NUR ---
Patient discharged to home in stable condition. Written and verbal after care instructions given. Patient verbalizes understanding of instructions. Stressed follow up or return to ER for worsening s/s. Patient A&O x4, ambulating with steady gait. NAD noted
[2020-11-01 00:24] VITALS: BP 129/83
== END 2020-11-01 00:02 | disposition home or self-care (01) ==
LOC: ER 22:25
DX: K08.89 Other specified disorders of teeth and supporting structures (principal); R00.0 Tachycardia, unspecified; Z87.891 Personal history of nicotine dependence; Z88.2 Allergy status to sulfonamides; D35.2 Benign neoplasm of pituitary gland; G89.29 Other chronic pain; M54.40 Lumbago with sciatica, unspecified side; Z79.899 Other long term (current) drug therapy
CPT/HCPCS: 96372; 99283; J1885; A4663

== ENCOUNTER 2020-11-05 20:15 | Emergency (ER) | payer OTHER ==
[~2020-11-05] VITALS: Ht 180.3 cm; Wt 101.2 kg
--- NOTE | 2020-11-05 20:35 | NUR ---
PATIENT CAME INTO ER LIMPING, HOLDING HIS BACK C/O CHRONIC LOWER BACK PAIN RADIATING TO LEFT LEG THAT HAS GOTTEN WORSEN IN THE LAST 4 DAYS.
[2020-11-05] MEDS ORDERED: ONDANSETRON HCL 4 MG/5 ML UDC ORAL SOL PO ONE (22:30)
[2020-11-05] MEDS ORDERED: KETOROLAC TROMETHAMINE 60 MG INJ IM ONE ×2 (22:30→22:35)
[2020-11-05] MEDS ORDERED: HYDROMORPHONE 1 MG/1 ML DISP.SYRIN IM ONE (22:30)
[2020-11-05] MEDS ORDERED: HYDROMORPHONE 2 MG/1 ML DISP.SYRIN ONE (22:34)
[2020-11-05] MEDS ORDERED: ONDANSETRON HCL 4 MG TABLET ONE (22:35)
[2020-11-05] MEDS ORDERED: HYDROMORPHONE 1 MG/1 ML DISP.SYRIN ONE (22:35)
[2020-11-05] MEDS ORDERED: HYDR4TAB4 PO (22:57)
[2020-11-05] MEDS ORDERED: NAPR-1164 PO (22:57)
[2020-11-05 23:21] VITALS: BP 159/90
== END 2020-11-05 23:21 | disposition home or self-care (01) ==
LOC: ER 20:15
DX: M54.42 Lumbago with sciatica, left side (principal); I10 Essential (primary) hypertension; Z87.891 Personal history of nicotine dependence; Z88.2 Allergy status to sulfonamides
CPT/HCPCS: 96372 ×2; 99284; J1170 ×2; J1885; A4663; Q0162

== ENCOUNTER 2020-11-18 19:37 | Emergency (ER) | payer OTHER ==
[~2020-11-18] VITALS: Ht 180.3 cm; Wt 101.2 kg
--- NOTE | 2020-11-18 21:18 | NUR ---
Pt here for L arm pain since this morning. He stated he fractured it 3 days ago but aggravated in this AM.
[2020-11-18] MEDS ORDERED: HYDROCODONE/APAP 10-325 MG TABLET PO ONE (21:45)
[2020-11-18] MEDS ORDERED: HYDROCODONE/APAP 10-325 MG TABLET ONE (21:54)
[2020-11-18] MEDS ORDERED: HYDR-3980 PO (22:25)
--- NOTE | 2020-11-18 22:37 | NUR ---
Patient discharged to home in stable condition. Written and verbal after care instructions given. Patient verbalizes understanding of instructions. Stressed follow up or return to ER for worsening s/s. All belongings taken. Pt. walks w/ steady gait.
[2020-11-18 22:43] VITALS: BP 129/85
== END 2020-11-18 22:44 | disposition home or self-care (01) ==
LOC: ER 19:39
DX: M25.532 Pain in left wrist (principal); Z91.81 History of falling; R03.0 Elevated blood-pressure reading, without diagnosis of hypertension; G89.4 Chronic pain syndrome; Z88.2 Allergy status to sulfonamides; Z86.39 Personal history of other endocrine, nutritional and metabolic disease; Z87.891 Personal history of nicotine dependence
CPT/HCPCS: 73090; 73130; A4663

== ENCOUNTER 2020-12-15 20:06 | Emergency (ER) | payer OTHER ==
[~2020-12-15] VITALS: Ht 180.3 cm; Wt 101.2 kg
[~2020-12-15 20:06] MED LIST changes: +HYDR-3980 PO
[2020-12-15] MEDS ORDERED: ONDANSETRON HCL 4 MG TABLET PO ONE (21:00)
[2020-12-15] MEDS ORDERED: HYDROMORPHONE 1 MG/1 ML DISP.SYRIN IM ONE (21:00)
[2020-12-15] MEDS ORDERED: KETOROLAC TROMETHAMINE 60 MG INJ IM ONE ×2 (21:00→21:09)
[2020-12-15] MEDS ORDERED: ONDANSETRON HCL 4 MG TABLET ONE (21:09)
[2020-12-15] MEDS ORDERED: HYDROMORPHONE 2 MG/1 ML DISP.SYRIN ONE (21:10)
[2020-12-15] MEDS ORDERED: HYDROMORPHONE 1 MG/1 ML DISP.SYRIN ONE (21:10)
[2020-12-15] MEDS ORDERED: OXYC-128 PO (22:01)
[2020-12-15 22:17] VITALS: BP 155/82
== END 2020-12-15 22:18 | disposition home or self-care (01) ==
LOC: ER 20:08
DX: M54.42 Lumbago with sciatica, left side (principal); G89.29 Other chronic pain; Z86.018 Personal history of other benign neoplasm; Z87.891 Personal history of nicotine dependence; Z88.2 Allergy status to sulfonamides
CPT/HCPCS: 96372 ×2; 99284; J1170 ×2; J1885; A4663; Q0162

== ENCOUNTER → 2021-01-06 | Emergency (ER) | payer SELFPAY | END | disposition left against medical advice (07) | LOC: ER 16:09 | DX: Z53.21 Procedure and treatment not carried out due to patient leaving prior to being seen by health care provider (principal) ==

== ENCOUNTER 2021-01-21 18:13 | Emergency (ER) | payer OTHER ==
[~2021-01-21] VITALS: Ht 180.3 cm; Wt 101.2 kg
--- NOTE | 2021-01-21 18:59 | NUR ---
PT IS IN ROOM #2B, WAITING FOR ER MD EVALUATION.
[2021-01-21] MEDS ORDERED: HYDROMORPHONE 1 MG/1 ML DISP.SYRIN IM ONE (19:15)
[2021-01-21] MEDS ORDERED: KETOROLAC TROMETHAMINE 30 MG INJ IM ONE (19:15)
[2021-01-21] MEDS ORDERED: ONDANSETRON ODT 4 MG TAB.RAPDIS SL ONE (19:15)
[2021-01-21] MEDS ORDERED: HYDR4TAB4 PO (19:17)
[2021-01-21] MEDS ORDERED: HYDROMORPHONE 2 MG/1 ML DISP.SYRIN ONE (19:30)
[2021-01-21] MEDS ORDERED: ONDANSETRON ODT 4 MG TAB.RAPDIS ONE (19:30)
[2021-01-21] MEDS ORDERED: KETOROLAC TROMETHAMINE 30 MG INJ ONE (19:30)
[2021-01-21] MEDS ORDERED: HYDROMORPHONE 1 MG/1 ML DISP.SYRIN ONE (19:31)
[2021-01-21 19:59] VITALS: BP 134/80
== END 2021-01-21 19:50 | disposition home or self-care (01) ==
LOC: ER 18:16
DX: M54.42 Lumbago with sciatica, left side (principal); Z87.891 Personal history of nicotine dependence; G89.29 Other chronic pain; D35.2 Benign neoplasm of pituitary gland; I10 Essential (primary) hypertension; Z79.899 Other long term (current) drug therapy
CPT/HCPCS: 96372 ×2; 99284; J1170 ×2; J1885; A4663; Q0162

== ENCOUNTER 2021-02-08 23:38 | Emergency (ER) | payer OTHER ==
[~2021-02-08] VITALS: Ht 180.3 cm; Wt 101.2 kg
--- NOTE | 2021-02-09 00:05 | NUR ---
Dr. Barnhart at bedside for MSE.
[2021-02-09] MEDS ORDERED: OXYC-128 PO (00:14)
[2021-02-09] MEDS ORDERED: HYDROMORPHONE 1 MG/1 ML DISP.SYRIN IM ONE (00:15)
[2021-02-09] MEDS ORDERED: HYDROMORPHONE 2 MG/1 ML DISP.SYRIN ONE (00:30)
[2021-02-09] MEDS ORDERED: HYDROMORPHONE 1 MG/1 ML DISP.SYRIN ONE (00:30)
[2021-02-09 00:31] VITALS: BP 125/98
--- NOTE | 2021-02-09 00:31 | NUR ---
Patient discharged to home in stable condition. Written and verbal after care instructions given. Patient verbalizes understanding of instructions. Stressed follow up or return to ER for worsening s/s. Patient out of ER with steady gait, no acute signs of distress, VSS, all belongings taken, instructed not to drive, will uber home
== END 2021-02-09 00:32 | disposition home or self-care (01) ==
LOC: ER 23:41
DX: U07.1 COVID-19 (principal); I10 Essential (primary) hypertension; Z87.891 Personal history of nicotine dependence; Z88.2 Allergy status to sulfonamides
CPT/HCPCS: 96372; 99283; J1170 ×2; A4663

== ENCOUNTER 2021-03-09 19:05 | Emergency (ER) | payer OTHER ==
[~2021-03-09] VITALS: Ht 177.8 cm; Wt 99.8 kg
[2021-03-09] MEDS ORDERED: HYDROMORPHONE 1 MG/1 ML DISP.SYRIN IM ONE (20:00)
[2021-03-09] MEDS ORDERED: OXYC-128 PO (20:00)
[2021-03-09] MEDS ORDERED: HYDROMORPHONE 2 MG/1 ML DISP.SYRIN ONE (20:06)
[2021-03-09] MEDS ORDERED: HYDROMORPHONE 1 MG/1 ML DISP.SYRIN ONE (20:07)
--- NOTE | 2021-03-09 20:10 | NUR ---
Patient discharged to home in stable condition WITH PATIENT TAKING UBER HOME. Written and verbal after care instructions given. Patient verbalizes understanding of instructions. Stressed follow up or return to ER for worsening s/s.
[2021-03-09 21:22] VITALS: BP 158/100
== END 2021-03-09 20:10 | disposition home or self-care (01) ==
LOC: ER 19:06
DX: M54.42 Lumbago with sciatica, left side (principal); Z86.16 Personal history of COVID-19; Z88.2 Allergy status to sulfonamides; Z87.891 Personal history of nicotine dependence; Z79.899 Other long term (current) drug therapy; R03.0 Elevated blood-pressure reading, without diagnosis of hypertension
CPT/HCPCS: 96372; 99283; J1170 ×2; A4663

== ENCOUNTER 2021-03-20 16:34 | Emergency (ER) | payer OTHER ==
[~2021-03-20] VITALS: Ht 182.9 cm; Wt 90.7 kg
--- NOTE | 2021-03-20 17:06 | NUR ---
MD@bedside, medical screening exam in progress
[2021-03-20] MEDS ORDERED: LIDOCAINE HCL 1% 20 ML VIAL IJ ONE (17:15)
--- NOTE | 2021-03-20 17:25 | NUR ---
Patient discharged to home in stable condition with brisk steady gait. Written and verbal after care instructions given to patient. Patient verbalized understanding and compliance of instructions. Stressed follow up with primary doctor or return to ER for worsening s/s.
== END 2021-03-20 17:34 | disposition home or self-care (01) ==
LOC: ER 17:32
DX: D23.21 Other benign neoplasm of skin of right ear and external auricular canal (principal); Z88.2 Allergy status to sulfonamides; Z86.16 Personal history of COVID-19
CPT/HCPCS: 10060; 99283; J3490; A4663

== ENCOUNTER 2021-03-22 15:27 | Emergency (ER) | payer OTHER ==
[~2021-03-22] VITALS: Ht 182.9 cm; Wt 90.7 kg
[~2021-03-22 15:27] MED LIST changes: -CYCL10TA9 PO; -CYCL5TAB PO; -CYCLOBENZAPRINE 10 MG; -GABA600T12 PO; -HYDR-3972 PO; -HYDR-3980 PO; -HYDR4TAB4 PO; -IBUP-1958 PO; -IBUP800T54 PO; -LIDO30AD10 TD; -LISI20TA30 PO; -NALO4SPR NS; -NAPR-1164 PO; -OXYC-121 PO; -OXYC-128 PO; -OXYC-133 PO; -PRED20TA PO; -PRED50TA PO; -PROP80CA51 PO; -toradol PO
[2021-03-22] MEDS ORDERED: CEPH500C2 PO (16:44)
[2021-03-22] MEDS ORDERED: HYDR-3980 PO (16:44)
[2021-03-22] MEDS ORDERED: HYDROCODONE/APAP 10-325 MG TABLET PO ONE (16:45)
[2021-03-22] MEDS ORDERED: HYDROCODONE/APAP 10-325 MG TABLET ONE (16:50)
--- NOTE | 2021-03-22 17:10 | NUR ---
Dr Benjamin appplied dressing to Rt ear,pt tolorated well.
[2021-03-22 17:15] VITALS: BP 121/70
== END 2021-03-22 17:16 | disposition home or self-care (01) ==
LOC: ER 15:30
DX: L76.32 Postprocedural hematoma of skin and subcutaneous tissue following other procedure (principal); Z86.16 Personal history of COVID-19; Z88.2 Allergy status to sulfonamides; R03.0 Elevated blood-pressure reading, without diagnosis of hypertension; Z87.891 Personal history of nicotine dependence
CPT/HCPCS: A4663

== ENCOUNTER 2021-04-11 23:10 | Emergency (ER) | payer OTHER ==
[~2021-04-11] VITALS: Ht 180.3 cm; Wt 97.1 kg
[~2021-04-11 23:10] MED LIST changes: +CEPH500C2 PO; +HYDR-3980 PO
--- NOTE | 2021-04-12 00:01 | NUR ---
DR. ROCHA AT BEDSIDE, MSE IN PROGRESS.
[2021-04-12] MEDS ORDERED: OXYC-128 PO (00:11)
[2021-04-12] MEDS ORDERED: HYDROMORPHONE 1 MG/1 ML DISP.SYRIN IM ONE (00:15)
[2021-04-12 00:20] VITALS: BP 144/87
[2021-04-12] MEDS ORDERED: HYDROMORPHONE 2 MG/1 ML DISP.SYRIN ONE (00:20)
--- NOTE | 2021-04-12 00:20 | NUR ---
Patient discharged to home in stable condition. Written and verbal after care instructions given. Patient verbalizes understanding of instructions. Stressed follow up or return to ER for worsening s/s. Steady gait. picked up by family.
== END 2021-04-12 00:21 | disposition home or self-care (01) ==
LOC: ER 23:13
DX: M54.42 Lumbago with sciatica, left side (principal); G89.29 Other chronic pain; I10 Essential (primary) hypertension; F41.9 Anxiety disorder, unspecified; Z79.899 Other long term (current) drug therapy; Z88.2 Allergy status to sulfonamides
CPT/HCPCS: 96372; 99283; J1170; A4663

== ENCOUNTER 2021-05-03 01:48 | Emergency (ER) | payer OTHER ==
[~2021-05-03] VITALS: Ht 180.3 cm; Wt 97.1 kg
[~2021-05-03 01:48] MED LIST changes: +OXYC-128 PO
--- NOTE | 2021-05-03 02:25 | NUR ---
Pt being triaged currently. Elaina Bae is pmd. Pt placed in room ED3 on [facility] in pos of comfort. 8/10 pain, otherwise healthy. VSS, SBP elevated. 132/114.
--- NOTE | 2021-05-03 02:33 | NUR ---
PATIENT WAS MSE BY DR ROCHA IN ROOM 03A.
[2021-05-03] MEDS ORDERED: OXYC-128 PO ×2 (02:35→02:42)
[2021-05-03] MEDS ORDERED: HYDROMORPHONE 1 MG/1 ML DISP.SYRIN IM ONE (02:45)
[2021-05-03] MEDS ORDERED: ONDANSETRON ODT 4 MG TAB.RAPDIS SL ONE (02:45)
[2021-05-03] MEDS ORDERED: ONDANSETRON ODT 4 MG TAB.RAPDIS ONE (03:02)
[2021-05-03] MEDS ORDERED: HYDROMORPHONE 2 MG/1 ML DISP.SYRIN ONE (03:03)
[2021-05-03] MEDS ORDERED: HYDROMORPHONE 1 MG/1 ML DISP.SYRIN ONE (03:03)
--- NOTE | 2021-05-03 03:08 | NUR ---
Patient not staying in his room wanting to talk to DR Barnhart regarding other patients prescription under his care told to go back to his room. Noted being uncooperative need to be told again to stay in his room.
--- NOTE | 2021-05-03 03:15 | NUR ---
V/S REFUSED. JUST WANTS TO LEAVE.
--- NOTE | 2021-05-03 03:15 | NUR ---
Patient discharged to home in stable condition. Written and verbal after care instructions given. Patient verbalizes understanding of instructions. Stressed follow up or return to ER for worsening s/s. Patients states that he knows DR Shukla making threats.
== END 2021-05-03 03:17 | disposition home or self-care (01) ==
LOC: ER 01:50
DX: M54.32 Sciatica, left side (principal); I10 Essential (primary) hypertension; Z88.2 Allergy status to sulfonamides
CPT/HCPCS: 96372; 99283; J1170 ×2; A4663; Q0162

== ENCOUNTER 2021-05-16 18:23 | Emergency (ER) | payer OTHER ==
[~2021-05-16] VITALS: Ht 180.3 cm; Wt 98.4 kg
--- NOTE | 2021-05-16 19:14 | NUR ---
Pending 's evaluation, nursing SBAR given to 7pm shift staff discharge planner Ryan, pending registry nurse Rachelle's arrival at this time.
--- NOTE | 2021-05-16 19:52 | NUR ---
Brief report obtained from wood cutter Ryan regarding pt. At bedside for introduction, i pt from a few weeks ago with the same CC of moderate to severe lower back pain from old injury. I am familiar with pt,. he states there has been no change to is history or condition. VSS, pt complaing of 11/04. PE WNl, pt is otherwise healthy with no serious med issues. patiently awaiting being seen by EDMD.
--- NOTE | 2021-05-16 19:55 | NUR ---
EDMD at bedside to eval pt condition.
[2021-05-16] MEDS ORDERED: OXYC-128 PO (19:57)
[2021-05-16] MEDS ORDERED: HYDROMORPHONE 1 MG/1 ML DISP.SYRIN IM ONE (20:00)
--- NOTE | 2021-05-16 20:00 | NUR ---
EDMD ordered 3mg dilaudid IM then to be DCed home. DC instructions already printed.
--- NOTE | 2021-05-16 20:10 | NUR ---
3mg Dilaudid admin via IM at the [facility]. Pt given dc instructions and med info for script. Pt confirmed understanding of DC instructions. VSS, Pt has good color and appearance. Pt denies any sob, dizziness, n/v or discomfort. PE WNL. Pt healthy individual that works out and leads a healthy life style. No s/sx of distress noted
[2021-05-16] MEDS ORDERED: HYDROMORPHONE 2 MG/1 ML DISP.SYRIN ONE (20:13)
[2021-05-16 20:21] VITALS: BP 145/86
== END 2021-05-16 20:10 | disposition home or self-care (01) ==
LOC: ER 18:27
DX: M54.42 Lumbago with sciatica, left side (principal); Z86.16 Personal history of COVID-19; Z88.2 Allergy status to sulfonamides; R00.0 Tachycardia, unspecified; I10 Essential (primary) hypertension
CPT/HCPCS: 96372; 99283; J1170; A4663

== ENCOUNTER 2021-05-30 21:53 | Emergency (ER) | payer OTHER ==
[~2021-05-30] VITALS: Ht 180.3 cm; Wt 98.4 kg
[~2021-05-30 21:53] MED LIST changes: -CEPH500C2 PO; -HYDR-3980 PO
--- NOTE | 2021-05-30 23:05 | NUR ---
Dr. Grover at bedside for MSE.
[2021-05-30] MEDS ORDERED: METH-806 PO (23:11)
[2021-05-30] MEDS ORDERED: HYDROCODONE/APAP 10-325 MG TABLET PO ONE (23:15)
[2021-05-30] MEDS ORDERED: KETOROLAC TROMETHAMINE 15 MG INJ IM ONE (23:15)
[2021-05-30] MEDS ORDERED: HYDROCODONE/APAP 10-325 MG TABLET ONE (23:21)
[2021-05-30] MEDS ORDERED: KETOROLAC TROMETHAMINE 15 MG INJ ONE (23:21)
[2021-05-30 23:24] VITALS: BP 140/90
--- NOTE | 2021-05-30 23:24 | NUR ---
Patient discharged to home in stable condition. Written and verbal after care instructions given. Patient verbalizes understanding of instructions. Stressed follow up or return to ER for worsening s/s. Patient out of ER with steady gait, no acute signs of distress, VSS, all belongings taken.
== END 2021-05-30 23:24 | disposition home or self-care (01) ==
LOC: ER 21:56
DX: M54.9 Dorsalgia, unspecified (principal); G89.29 Other chronic pain
CPT/HCPCS: 96372; 99283; J1885; A4663

== ENCOUNTER 2021-08-15 19:46 | Emergency (ER) | payer OTHER ==
[~2021-08-15] VITALS: Ht 180.3 cm; Wt 100.2 kg
[~2021-08-15 19:46] MED LIST changes: +METH-806 PO
--- NOTE | 2021-08-15 20:00 | NUR ---
Dr Moreira at bedside, MSE in progress.
[2021-08-15] MEDS ORDERED: HYDROMORPHONE HCL 2 MG TABLET ONE (20:22)
[2021-08-15] MEDS ORDERED: HYDR4TAB4 PO (20:27)
[2021-08-15] MEDS ORDERED: HYDROMORPHONE HCL 2 MG TABLET PO ONE (20:30)
[2021-08-15 20:34] VITALS: BP 138/105
== END 2021-08-15 20:34 | disposition home or self-care (01) ==
LOC: ER 19:49
DX: M54.50 Low back pain, unspecified (principal); G89.29 Other chronic pain; R03.0 Elevated blood-pressure reading, without diagnosis of hypertension; Z86.16 Personal history of COVID-19; Z88.2 Allergy status to sulfonamides
CPT/HCPCS: A4663

== ENCOUNTER 2021-09-12 21:27 | Emergency (ER) | payer OTHER ==
[~2021-09-12] VITALS: Ht 180.3 cm; Wt 100.2 kg
[~2021-09-12 21:27] MED LIST changes: +HYDR4TAB4 PO
--- NOTE | 2021-09-12 21:50 | NUR ---
pt came in to the er c/o left elbow pain. pt in room 4b.
[2021-09-12] MEDS ORDERED: HYDROMORPHONE 1 MG/1 ML DISP.SYRIN IM ONE (22:15)
[2021-09-12] MEDS ORDERED: ONDANSETRON HCL 4 MG TABLET PO ONE (22:15)
[2021-09-12] MEDS ORDERED: KETOROLAC TROMETHAMINE 60 MG INJ IM ONE ×2 (22:15→22:52)
[2021-09-12 22:33] LABS: HEMATOCRIT 45.9 % (36.7-47.1); MEAN CORPUSCULAR HEMOGLOBIN 32.7 uug (23.8-33.4); MEAN CORPUSCULAR VOLUME 95.9 fL (73.0-96.2); PLATELET COUNT (AUTO) 278 K/uL (152-348)
[2021-09-12 22:40] LABS: CREATININE 1.1 mg/dL (0.6-1.3); POTASSIUM 4.7 mmol/L (3.5-5.1)
[2021-09-12] MEDS ORDERED: ONDANSETRON HCL 4 MG TABLET ONE (22:51)
[2021-09-12] MEDS ORDERED: HYDROMORPHONE 1 MG/1 ML DISP.SYRIN ONE (22:51)
[2021-09-12] MEDS ORDERED: HYDROMORPHONE 2 MG/1 ML DISP.SYRIN ONE (22:51)
[2021-09-12] MEDS ORDERED: OXYC-128 PO (23:12)
[2021-09-12] MEDS ORDERED: HYDR4TAB4 PO (23:19)
[2021-09-12] MEDS ORDERED: CYAN-10 IM (23:21)
[2021-09-12 23:27] VITALS: BP 150/80
== END 2021-09-12 23:28 | disposition home or self-care (01) ==
LOC: ER 21:30
DX: G56.22 Lesion of ulnar nerve, left upper limb (principal)
CPT/HCPCS: 36415; 80048; 82607; 85025; 96372 ×2; 99284; J1170 ×2; J1885; A4663; Q0162

== ENCOUNTER 2021-09-27 01:55 | Emergency (ER) | payer OTHER ==
[~2021-09-27] VITALS: Ht 180.3 cm; Wt 100.2 kg
[~2021-09-27 01:55] MED LIST changes: +CYAN-10 IM
[2021-09-27] MEDS ORDERED: HYDR2TAB4 PO (03:28)
[2021-09-27] MEDS ORDERED: HYDROMORPHONE HCL 2 MG TABLET PO ONE (03:30)
[2021-09-27] MEDS ORDERED: HYDROMORPHONE HCL 2 MG TABLET ONE (03:42)
[2021-09-27 03:46] VITALS: BP 152/91
--- NOTE | 2021-09-27 03:46 | NUR ---
Patient discharged to home in stable condition. Written and verbal after care instructions given. Patient verbalizes understanding of instructions. Stressed follow up or return to ER for worsening s/s. pt ambulated wtih steady gait. denies pain. no SOB. no chest pain. AOx4
== END 2021-09-27 03:57 | disposition home or self-care (01) ==
LOC: ER 01:56
DX: M25.522 Pain in left elbow (principal); R20.2 Paresthesia of skin; G89.29 Other chronic pain; M54.40 Lumbago with sciatica, unspecified side; F41.9 Anxiety disorder, unspecified; Z79.899 Other long term (current) drug therapy
CPT/HCPCS: A4663

== ENCOUNTER 2021-11-08 19:23 | Emergency (ER) | payer OTHER ==
[~2021-11-08] VITALS: Ht 180.3 cm; Wt 102.1 kg
[~2021-11-08 19:23] MED LIST changes: +HYDR2TAB4 PO
[2021-11-08] MEDS ORDERED: OXYC-128 PO (19:59)
[2021-11-08] MEDS ORDERED: HYDROMORPHONE 1 MG/1 ML DISP.SYRIN IM ONE (20:00)
[2021-11-08] MEDS ORDERED: HYDROMORPHONE 1 MG/1 ML DISP.SYRIN ONE (20:05)
[2021-11-08] MEDS ORDERED: HYDROMORPHONE 2 MG/1 ML DISP.SYRIN ONE (20:05)
[2021-11-08 20:21] VITALS: BP 155/95
== END 2021-11-08 20:22 | disposition home or self-care (01) ==
LOC: ER 19:27
DX: M54.42 Lumbago with sciatica, left side (principal); R00.0 Tachycardia, unspecified; R03.0 Elevated blood-pressure reading, without diagnosis of hypertension; F41.9 Anxiety disorder, unspecified; Z88.2 Allergy status to sulfonamides; Z86.16 Personal history of COVID-19
CPT/HCPCS: 99283; 96372; J1170 ×2; A4663

== ENCOUNTER 2021-11-14 21:38 | Emergency (ER) | payer OTHER ==
[~2021-11-14] VITALS: Ht 180.3 cm; Wt 103.4 kg
--- NOTE | 2021-11-14 22:20 | NUR ---
Dr. Barnhart at bedside for MSE.
[2021-11-14] MEDS ORDERED: HYDROMORPHONE 1 MG/1 ML DISP.SYRIN IM ONE (22:30)
[2021-11-14] MEDS ORDERED: HYDR4TAB4 PO (22:44)
[2021-11-14] MEDS ORDERED: HYDROMORPHONE 2 MG/1 ML DISP.SYRIN ONE (22:45)
[2021-11-14] MEDS ORDERED: HYDROMORPHONE 1 MG/1 ML DISP.SYRIN ONE (22:45)
[2021-11-14 23:07] VITALS: BP 150/100
== END 2021-11-14 23:07 | disposition home or self-care (01) ==
LOC: ER 21:38
DX: M54.42 Lumbago with sciatica, left side (principal); R03.0 Elevated blood-pressure reading, without diagnosis of hypertension; G89.29 Other chronic pain
CPT/HCPCS: 99283; 96372; J1170 ×2; A4663

== ENCOUNTER 2021-12-02 19:13 | Emergency (ER) | payer OTHER ==
[~2021-12-02] VITALS: Ht 180.3 cm; Wt 104.3 kg
--- NOTE | 2021-12-02 20:45 | NUR ---
After being triaged, patient was place back in the waiting room to wait for bed availability.
--- NOTE | 2021-12-03 00:42 | NUR ---
pt in room 3 pt c/o back pain.
--- NOTE | 2021-12-03 00:51 | NUR ---
Dr. Barnhart at bedside for MSE.
[2021-12-03] MEDS ORDERED: HYDROMORPHONE 1 MG/1 ML DISP.SYRIN IM ONE (01:15)
[2021-12-03] MEDS ORDERED: HYDR4TAB4 PO (01:29)
[2021-12-03] MEDS ORDERED: HYDROMORPHONE 1 MG/1 ML DISP.SYRIN ONE (01:30)
[2021-12-03] MEDS ORDERED: HYDROMORPHONE 2 MG/1 ML DISP.SYRIN ONE (01:31)
[2021-12-03 01:41] VITALS: BP 140/80
== END 2021-12-03 01:41 | disposition home or self-care (01) ==
LOC: ER 19:15
DX: M54.42 Lumbago with sciatica, left side (principal); I10 Essential (primary) hypertension
CPT/HCPCS: 99283; 96372; J1170 ×2; A4663

== ENCOUNTER 2022-01-14 18:52 | Emergency (ER) | payer OTHER ==
[~2022-01-14] VITALS: Ht 180.3 cm; Wt 104.3 kg
--- NOTE | 2022-01-14 19:32 | NUR ---
Dr. Barnhart at bedside. MSE in progress.
[2022-01-14] MEDS ORDERED: HYDROMORPHONE 2 MG/1 ML DISP.SYRIN ONE (19:44)
[2022-01-14] MEDS ORDERED: HYDROMORPHONE 1 MG/1 ML DISP.SYRIN IM ONE (19:45)
[2022-01-14] MEDS ORDERED: HYDR4TAB4 PO (19:47)
--- NOTE | 2022-01-14 19:51 | NUR ---
Patient discharged to home in stable condition. A/O x4. NAD noted. Ambulatory with steady gait. All belongings with patient. Written and verbal after care instructions given. Patient verbalizes understanding of instructions. Stressed follow up or return to ER for worsening s/s.
[2022-01-14 19:55] VITALS: BP 133/80
== END 2022-01-14 19:51 | disposition home or self-care (01) ==
LOC: ER 18:52
DX: M54.42 Lumbago with sciatica, left side (principal); I10 Essential (primary) hypertension; Z88.2 Allergy status to sulfonamides; G89.29 Other chronic pain
CPT/HCPCS: 99283; 96372; J1170; A4663

== ENCOUNTER 2022-01-23 02:03 | Emergency (ER) | payer OTHER ==
[~2022-01-23] VITALS: Ht 180.3 cm; Wt 102.1 kg
[2022-01-23] MEDS ORDERED: HYDR-3980 PO (02:22)
[2022-01-23] MEDS ORDERED: HYDROCODONE/APAP 10-325 MG TABLET PO ONE (02:30)
[2022-01-23] MEDS ORDERED: HYDROCODONE/APAP 10-325 MG TABLET ONE ×2 (02:54→02:56)
[2022-01-23 03:09] VITALS: BP 145/68
== END 2022-01-23 03:12 | disposition home or self-care (01) ==
LOC: ER 02:03
DX: G89.29 Other chronic pain (principal); M54.42 Lumbago with sciatica, left side; Z88.2 Allergy status to sulfonamides
CPT/HCPCS: A4663

== ENCOUNTER 2022-02-09 18:47 | Emergency (ER) | payer OTHER ==
[~2022-02-09] VITALS: Ht 172.7 cm; Wt 95.3 kg
[~2022-02-09 18:47] MED LIST changes: +HYDR-3980 PO
--- NOTE | 2022-02-09 19:25 | NUR ---
Dr Savage at bedside MSE in progress
--- NOTE | 2022-02-09 19:38 | NUR ---
Patient eloped from facility. ER physician notified.
[2022-02-09 19:39] VITALS: BP 135/78
== END 2022-02-09 19:39 | disposition left against medical advice (07) ==
LOC: ER 18:49
DX: G89.29 Other chronic pain (principal); M54.50 Low back pain, unspecified
CPT/HCPCS: A4663

== ENCOUNTER 2022-02-20 18:49 | Emergency (ER) | payer OTHER ==
[~2022-02-20] VITALS: Ht 180.3 cm; Wt 101.2 kg
[2022-02-20] MEDS ORDERED: ACETAMINOPHEN 325 MG TABLET PO ONE (19:45)
[2022-02-20] MEDS ORDERED: LIDOCAINE 5% PATCH TD ONE ×2 (19:45→19:46)
[2022-02-20] MEDS ORDERED: ACETAMINOPHEN 325 MG TABLET ONE (19:46)
[2022-02-20] MEDS ORDERED: ACET-2154 PO (21:08)
[2022-02-20 21:16] VITALS: BP 127/83
== END 2022-02-20 21:16 | disposition home or self-care (01) ==
LOC: ER 18:51
DX: M54.42 Lumbago with sciatica, left side (principal); G89.29 Other chronic pain
CPT/HCPCS: A4663

== ENCOUNTER 2022-04-27 19:10 | Emergency (ER) | payer OTHER ==
[~2022-04-27 19:10] MED LIST changes: +ACET-2154 PO
--- NOTE | 2022-04-27 19:30 | NUR ---
Pt left W/O being triaged.
== END 2022-04-27 19:31 | disposition left against medical advice (07) ==
LOC: ER 19:12
DX: Z53.21 Procedure and treatment not carried out due to patient leaving prior to being seen by health care provider (principal)

== ENCOUNTER 2023-03-25 21:02 | Emergency (ER) | payer OTHER ==
[~2023-03-25] VITALS: Ht 182.9 cm; Wt 104.3 kg
[2023-03-25] MEDS ORDERED: ACETAMINOPHEN 325 MG TABLET PO ONE (23:00)
[2023-03-25] MEDS ORDERED: DIAZEPAM 2 MG TABLET PO ONE (23:00)
[2023-03-25] MEDS ORDERED: KETOROLAC TROMETHAMINE 30 MG INJ IM ONE (23:00)
[2023-03-25] MEDS ORDERED: DIAZEPAM 5 MG TABLET ONE (23:08)
[2023-03-25] MEDS ORDERED: KETOROLAC TROMETHAMINE 30 MG INJ ONE (23:08)
[2023-03-25] MEDS ORDERED: ACETAMINOPHEN 325 MG TABLET ONE (23:08)
[2023-03-25] MEDS ORDERED: OXYCODONE HCL 5 MG TABLET PO ONE (23:45)
[2023-03-25] MEDS ORDERED: OXYCODONE HCL 5 MG TABLET ONE (23:45)
[2023-03-26] MEDS ORDERED: TRAM50TA2 PO (01:31)
[2023-03-26 01:34] VITALS: BP 127/84; TEMP 98.3; O2SAT 98
== END 2023-03-26 01:30 | disposition home or self-care (01) ==
LOC: ER 21:03
DX: G89.29 Other chronic pain (principal); M54.50 Low back pain, unspecified; Z79.899 Other long term (current) drug therapy; Z60.2 Problems related to living alone; Z88.2 Allergy status to sulfonamides
CPT/HCPCS: 99284; 96372; J1885; A4606; A4663

== ENCOUNTER 2024-08-26 20:48 | Emergency (ER) | payer OTHER ==
[~2024-08-26] VITALS: Ht 182.9 cm; Wt 91.6 kg
[~2024-08-26 20:48] MED LIST changes: +TRAM50TA2 PO
[2024-08-26] MEDS ORDERED: HYDROMORPHONE HCL 2 MG TABLET ONE (21:09)
[2024-08-26] MEDS: HYDROMORPHONE HCL 2 MG TABLET PO ONE (21:10)
[2024-08-26] MEDS ORDERED: HYDR4TAB4 PO (21:42)
[2024-08-27 00:19] VITALS: BP 117/49; O2SAT 96
== END 2024-08-26 21:55 | disposition home or self-care (01) ==
LOC: ER 20:51
DX: G89.29 Other chronic pain (principal); M54.50 Low back pain, unspecified; Z79.899 Other long term (current) drug therapy; Z88.2 Allergy status to sulfonamides; Z88.7 Allergy status to serum and vaccine; Z60.2 Problems related to living alone
CPT/HCPCS: 72110; A4606; A4663

== ENCOUNTER 2024-11-23 20:10 | Emergency (ER) | payer MEDICAID, OTHER ==
[~2024-11-23] VITALS: Ht 182.9 cm; Wt 90.3 kg
[2024-11-23 20:21] VITALS: BP 127/96; O2SAT 96
[2024-11-23] MEDS ORDERED: HYDROMORPHONE HCL 2 MG TABLET ONE (21:16)
[2024-11-23] MEDS ORDERED: ONDANSETRON HCL 4 MG TABLET ONE (21:17)
[2024-11-23] MEDS: HYDROMORPHONE HCL 2 MG TABLET PO ONE (21:19)
[2024-11-23] MEDS: ONDANSETRON HCL 4 MG TABLET PO ONE (21:29)
== END 2024-11-23 21:25 | disposition home or self-care (01) ==
LOC: ER 20:10
DX: G89.29 Other chronic pain (principal); M54.50 Low back pain, unspecified; Z79.899 Other long term (current) drug therapy; Z86.16 Personal history of COVID-19; Z88.2 Allergy status to sulfonamides; Z88.7 Allergy status to serum and vaccine; Z60.2 Problems related to living alone
CPT/HCPCS: A4606; A4663; Q0162

== ENCOUNTER 2025-01-20 02:56 | Emergency (ER) | payer MEDICAID ==
[~2025-01-20] VITALS: Ht 182.9 cm; Wt 87.5 kg
[2025-01-20 03:03] VITALS: BP 122/75
[2025-01-20] MEDS ORDERED: LIDOCAINE 5% PATCH TD ONE (03:23)
[2025-01-20] MEDS ORDERED: HYDROCODONE/APAP 10-325 MG TABLET ONE (03:24)
[2025-01-20] MEDS ORDERED: KETOROLAC TROMETHAMINE 15 MG INJ ONE (03:24)
[2025-01-20] MEDS ORDERED: CYCLOBENZAPRINE HCL 10 MG TABLET ONE (03:24)
[2025-01-20] MEDS: HYDROCODONE/APAP 10-325 MG TABLET PO ONE (03:29)
[2025-01-20] MEDS: KETOROLAC TROMETHAMINE 15 MG INJ IM ONE (03:29)
[2025-01-20] MEDS: LIDOCAINE 5% PATCH TD ONE (03:29)
[2025-01-20] MEDS: CYCLOBENZAPRINE HCL 10 MG TABLET PO ONE (03:29)
[2025-01-20] MEDS ORDERED: CYCL5TAB PO (03:38)
[2025-01-20] MEDS ORDERED: LIDO30AD10 TP (03:38)
[2025-01-20 04:16] VITALS: BP 122/75; O2SAT 96
== END 2025-01-20 04:16 | disposition home or self-care (01) ==
LOC: ER 03:01
DX: M54.50 Low back pain, unspecified (principal); G89.29 Other chronic pain; Z79.899 Other long term (current) drug therapy; Z88.2 Allergy status to sulfonamides; Z88.7 Allergy status to serum and vaccine
CPT/HCPCS: 99284; 96372; J1885; A4606; A4663